=== PATIENT | female | born 1985 | race Caucasian/White ===

== ENCOUNTER 2017-04-24 10:56 | Day surgery (SDC) | payer BC ==
[2017-04-20 09:01] VITALS: BMI 30.9
--- NOTE | 2017-04-23 09:50 | HP ---
HISTORY AND PHYSICAL HISTORY: Zenobia Leyva is a 31-year-old patient seen with left knee adhesions after previously having undergone repair of a retinacular tear. Treatment options were discussed with her. She elected to proceed with manipulation under anesthesia, left knee with steroid injection. Consent regarding the procedure was obtained. PAST MEDICAL HISTORY: Asthma. PAST SURGICAL HISTORY: section, left knee open medial retinacular repair. DAILY MEDICATIONS: Ibuprofen as needed. ALLERGIES: None reported. SOCIAL HISTORY: Patient denies tobacco use. PHYSICAL EVALUATION: Left knee, she has a well-healed anterior incision. Range of motion is 0 to 70 degrees. Ligaments are stable. Hip rotation is without pain. Distal neurovascular exam is intact. IMPRESSION: 1. Left knee adhesions with history of medial retinacular repair. 2. Asthma. PLAN: Manipulation under anesthesia, left knee, with steroid injection. MMODL / IJN: [id number] /
[~2017-04-24 10:56] MED LIST: LACTATED RINGERS 1,000 ML IV SCH; MIDAZOLAM 2 MG/2 ML VIAL IV PRN; ceFAZolin IN SWFI 2 GM/20 ML SYRINGE IVP ONE
[2017-04-24 11:25] VITALS: TEMP 98.1
[2017-04-24] MEDS ORDERED: LIDOCAINE 1% 20 ML VIAL (10MG/ML) FOR IV START INTRADERMA ONE (11:31)
[2017-04-24] MEDS ORDERED: ONDANSETRON 4 MG/2 ML VIAL ONE (11:36)
[2017-04-24] MEDS ORDERED: SCOPOLAMINE 1.5MG/72HR PATCH TRANSDERM ONE (11:40)
[2017-04-24] MEDS ORDERED: DEXAMETHASONE SOD PHOS (MDV) 100 MG/10 ML VIAL IV ONE (11:42)
[2017-04-24] MEDS ORDERED: diphenhydrAMINE 50 MG/ML 1 ML VIAL IVP ONE (12:38)
[2017-04-24] MEDS ORDERED: KETOROLAC 30 MG/ML 1 ML VIAL ONE (12:56)
[2017-04-24] MEDS ORDERED: PROPOFOL 10 MG/ML 20 ML VIAL IV ONE (12:56)
[2017-04-24] MEDS ORDERED: BUPIVACAINE (PF) 0.25% 30 ML VIAL SQ ONE (13:03)
[2017-04-24] MEDS ORDERED: methylPREDNISolone ACETATE 80 MG/ML 1 ML VIAL MISCELLANE ONE (13:03)
--- NOTE | 2017-04-24 13:07 | P.OP ---
Date of Procedure: 04/24/17 Preoperative Diagnosis: Left knee adhesions Postoperative Diagnosis: Left knee adhesions Procedure(s) Performed: Manipulation under anesthesia left knee with steroid injection Anesthesia: MAC, local Surgeon: Justyn Lau Estimated Blood Loss (ml): 0 Pathology: none sent Condition: stable Disposition: PACU Indications for Procedure: 31-year-old patient seen with left knee persistent adhesions failing conservative treatment. After options were discussed she elected to proceed with manipulation under anesthesia and steroid injection. Operative Findings: See description of procedure Description of Procedure: The patient was taken to a monitored anesthesia area. The patient underwent IV sedation by the department of anesthesia. When sufficient anesthesia was noted I performed a manipulation of the left knee achieving full extension and 135 of flexion. There were audible tearing of the adhesions noted. The superior lateral aspect of the knee was now prepped and draped in the normal sterile orthopedic fashion. I injected 1 mL Depo-Medrol and 3 mL quarter percent plain Marcaine intra-articular. A sterile Band-Aid was applied. The knee was again taken through range of motion. The patient was awakened having tolerated the procedure well.
[2017-04-24] MEDS: fentaNYL (PF) 50 MCG/ML 2 ML AMP IV PRN ×2 (13:25→13:35)
[2017-04-24 13:26] VITALS: RESP 16
[2017-04-24 14:08] VITALS: BP 117/80; PULSE 64
== END 2017-04-24 14:35 | disposition home or self-care (01) ==
LOC: OR 10:56
PROVIDERS: ATTEND Orthopaedic Surgery
DX: M23.8X2 Other internal derangements of left knee (principal); Z98.890 Other specified postprocedural states; J45.909 Unspecified asthma, uncomplicated; K21.9 Gastro-esophageal reflux disease without esophagitis; Z79.891 Long term (current) use of opiate analgesic
CPT/HCPCS: 27570; J1200; J1040; J2405; J3010; J1885; J1100; J2704